=== PATIENT | male | born 1935 | race African-American/Black ===

== ENCOUNTER → 2016-09-28 | Outpatient (CLI) | payer MEDICARE, OTHER ==
[2015-07-19 18:15] VITALS: BP 173/78
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
--- NOTE | 2016-09-28 13:22 | KCIC ---
EXAM: Lumbar spine MRI without contrast. HISTORY: Lumbar radiculopathy. TECHNIQUE: Multiplanar, multisequence magnetic resonance imaging of the lumbar spine was performed without contrast. COMPARISON: Radiographs obtained on the same date. FINDINGS: There is minimal grade 1 anterolisthesis of L4 on L5, measuring 3 mm. There is minimal grade 1 anterolisthesis of and L3 on L4, measuring 2 mm. There is 3 mm retrolisthesis of L5 on S1. There is degenerative endplate remodeling with disc desiccation at L2-S1. There is disc space narrowing at L5-S1. There are a few endplate Schmorl's nodes. The conus terminates at L2. There are redundant nerve roots within the ventral aspect of the central canal at L1 and L2 due to significant central canal stenosis at L2-L3, described in detail below. No suspicious osseous lesion is seen. 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 At L1-L2, there is a minimal disc bulge with suspected bilateral foraminal annular tears. There is mild left and minimal right foraminal stenosis. At L2-L3, there is a left paracentral to lateral recess disc protrusion with 5 mm inferior and 4 mm superior extrusion. There is also a left foraminal to extraforaminal disc protrusion and annular tear and right foraminal extra foraminal disc protrusion. This is superimposed on a diffuse disc bulge and endplate remodeling. There is mild facet arthropathy. There is hypertrophy of the ligamentum flavum. There is mild to moderate right and mild left foraminal stenosis with partial effacement of the exiting L2 nerve roots. There is moderate to severe central canal stenosis. At L3-L4, there there is a broad-based left paracentral disc protrusion and there are foraminal disc protrusions and annular tears superimposed on a diffuse disc bulge and endplate remodeling. There is mild facet arthropathy. There is hypertrophy of the ligamentum flavum. There is moderate to severe right and moderate left foraminal stenosis with effacement of the exiting L3 nerve roots. There is mild central canal stenosis. At L4-L5, there is a right foraminal annular tear and left foraminal to extraforaminal disc protrusion with slight superior extrusion superimposed on a disc bulge and endplate remodeling. There is mild right and moderate left facet arthropathy. There is mild to moderate right and moderate left foraminal stenosis with partial effacement of the exiting L4 nerve roots. There is mild central canal stenosis. At L5-S1, there is a posterior central disc protrusion with 4 mm inferior extrusion and right foraminal to extraforaminal disc protrusion with superior extrusion superimposed on a disc bulge and endplate osteophytosis. There is moderate to severe right and mild to moderate left facet arthropathy. There is severe right and [id number] left foraminal stenosis with effacement of the exiting L5 nerve roots. IMPRESSION: 1. Multilevel degenerative change within the lumbar spine, described in detail above. This results in mild left and minimal right foraminal stenosis at L1-L2, mild to moderate right and mild left foraminal and moderate to severe central canal stenosis L2-L3, moderate to severe right and moderate left foraminal and mild central canal stenosis at L3-L4, [id number] right and moderate left foraminal and mild central canal stenosis L4-L5 and moderate to severe right and moderate left foraminal stenosis at L5-S1. 2. Slight listhesis at multiple levels. Electronically signed by: Mayra Mccoy MD (09/28/2016 1:19 PM) [place] [id number]
== END | disposition home or self-care (01) ==
LOC: KCIC MRI 11:57
PROVIDERS: ATTEND Family Medicine
DX: M47.896 Other spondylosis, lumbar region (principal); M43.16 Spondylolisthesis, lumbar region; M51.16 Intervertebral disc disorders with radiculopathy, lumbar region; M48.06 Spinal stenosis, lumbar region
CPT/HCPCS: 72110; 72148

== ENCOUNTER → 2017-04-08 | Outpatient (CLI) | payer MEDICARE, OTHER ==
[2017-04-08] MEDS: NORMAL SALINE IV (10:24)
[2017-04-08] MEDS: SINCALIDE IV (10:24)
== END | disposition home or self-care (01) ==
LOC: NM 08:06
DX: R10.9 Unspecified abdominal pain (principal); I12.9 Hypertensive chronic kidney disease with stage 1 through stage 4 chronic kidney disease, or unspecified chronic kidney disease; N18.9 Chronic kidney disease, unspecified
CPT/HCPCS: 78226; 96374; 96375; A9537; J2805

== ENCOUNTER → 2020-01-02 | Outpatient (CLI) | payer OTHER ==
[2015-07-19 18:15] VITALS: BP 173/78
[~2020-01-02] MED LIST: ATOR40TA59 PO; CHOL500021 PO; ESOM20CA PO; MECL-75 PO; TRAZ-118 PO
== END ==
LOC: LAB 12:42
PROVIDERS: ATTEND Internal Medicine Gastroenterology
DX: Z01.812 Encounter for preprocedural laboratory examination (principal); Z20.828 Contact with and (suspected) exposure to other viral communicable diseases; R11.0 Nausea
CPT/HCPCS: U0003

== ENCOUNTER → 2020-01-05 | Day surgery (SDC) | payer OTHER, MEDICARE ==
[~2020-01-05] MED LIST changes: +GLYCOPYRROLATE 1 MG/5 ML VIAL. ONE; +IV RINGERS,LACTATED 1000ML 1,000 ML IV ONE; +LIDOCAINE 2% PF 5 ML VIAL. ONE; +PROPOFOL 10 MG/ML (20ML) VIAL. IV ONE
[2020-01-05 10:18] VITALS: BP 135/63
== END ==
LOC: SURG 08:29
PROVIDERS: ATTEND Internal Medicine Gastroenterology
DX: R19.4 Change in bowel habit (principal); K64.1 Second degree hemorrhoids; K57.30 Diverticulosis of large intestine without perforation or abscess without bleeding; K29.50 Unspecified chronic gastritis without bleeding; R11.0 Nausea; E78.00 Pure hypercholesterolemia, unspecified; I10 Essential (primary) hypertension; E11.9 Type 2 diabetes mellitus without complications; M19.90 Unspecified osteoarthritis, unspecified site; Z79.899 Other long term (current) drug therapy; Z79.84 Long term (current) use of oral hypoglycemic drugs; Z85.46 Personal history of malignant neoplasm of prostate; Z88.6 Allergy status to analgesic agent; Z88.8 Allergy status to other drugs, medicaments and biological substances
CPT/HCPCS: 43235; 45378; J2704; J3490

== ENCOUNTER → 2021-06-06 | Day surgery (SDC) | payer OTHER, MEDICARE ==
[~2021-06-06] MED LIST changes: +AMLO-187 PO; -GLYCOPYRROLATE 1 MG/5 ML VIAL. ONE; +HYDROmorphone 2 MG/ML INJ. IVP PRN; +IV NORMAL SALINE 1000ML BAG 1,000 ML IV SCH; -IV RINGERS,LACTATED 1000ML 1,000 ML IV ONE; +IV RINGERS,LACTATED 1000ML 1,000 ML IV SCH; -LIDOCAINE 2% PF 5 ML VIAL. ONE; +MORPHINE SULFATE 2 MG/ML INJ. IVP PRN; +PROCHLORPERAZINE 10 MG/2 ML VIAL. IVP PRN; +fentaNYL PF VIAL 100 MCG/2 ML VIAL IVP PRN
[2021-06-06 09:04] VITALS: BP 182/75
--- NOTE | 2021-06-06 09:49 | PDOC2 ---
CONSULT Date of Consult Date of Consult DATE: 06/06/21 TIME: 09:44 Reason for Consult Reason for Consult: epigastric abd pain History of Present Illness Reason for Visit: 85 yo Male seen with above. He has diffuse pain that lasts for days. Prior imaging studies of GB have been unrevealing. Weight is stable. Linzess helps with his constipation. Prior colonoscpoy was unrevealing. With the continued issues, he requests further evaluation. Past Medical History Cardiovascular: HTN Renal/: Chronic renal insuff Endocrine: Diabetes Past Surgical History Past Surgical History: Other (eye surgery) Family History Family History: Family History Unknown Social History No ALCOHOL: rare Current Medications Current Medications Current Medications Fentanyl Citrate (Fentanyl 2ml Vial) 25 mcg PRN Q5MIN PRN IVP MILD PAIN 1-3; Start 06/06/21 at 06:00; Stop 06/07/21 at 05:59 Fentanyl Citrate (Fentanyl 2ml Vial) 50 mcg PRN Q5MIN PRN IVP MODERATE PAIN 4- 6; Start 06/06/21 at 06:00; Stop 06/07/21 at 05:59 Morphine Sulfate (Morphine Sulfate) 1 mg PRN Q10MIN PRN IVP SEVERE PAIN 7-10; Start 06/06/21 at 06:00; Stop 06/07/21 at 05:59 Ringer's Solution 1,000 ml @ 30 mls/hr Q24H IV ; Start 06/06/21 at 06:00; Stop 06/06/21 at 17:59 Hydromorphone HCl (Dilaudid) 0.5 mg PRN Q10MIN PRN IVP SEVERE PAIN 7-10, 2nd CHOICE; Start 06/06/21 at 06:00; Stop 06/07/21 at 05:59 Prochlorperazine Edisylate (Compazine) 5 mg PACU PRN PRN IVP NAUSEA, MRX1; Start 06/06/21 at 06:00; Stop 06/07/21 at 05:59 Sodium Chloride 1,000 ml @ 100 mls/hr Q10H IV Last administered on 06/06/21at 09:12; Start 06/06/21 at 09:15; Stop 06/07/21 at 09:14 Active Scripts Active Reported Amlodipine Besylate 10 Mg Tablet 10 Mg PO DAILY Meclizine Hcl 25 Mg Tablet 25 Mg PO DAILY Trazodone Hcl 50 Mg Tablet 50 Mg PO HS D3-50 (Cholecalciferol (Vitamin D3)) 50,000 Unit Capsule 50,000 Unit PO WEEKLY Allergies Allergies: Coded Allergies: nalbuphine (Verified Allergy, Intermediate, 01/05/20) oxycodone (Verified Allergy, Intermediate, 01/05/20) venom-honey bee (Verified Allergy, Intermediate, 01/05/20) niacin (Verified Allergy, Unknown, 01/05/20) promethazine (Verified Allergy, Unknown, 01/05/20) sulindac (Verified Allergy, Unknown, 01/05/20) ROS Eyes: Yes Blurry vision Gastrointestinal: Yes Nausea, Yes Vomiting, Yes Abdominal Pain, Yes Diarrhea, Yes Constipation, Yes Melena, Yes Hematochezia, Yes Other Physical Exam General: Alert, Oriented X3, Cooperative Lungs: Clear to auscultation Heart: Normal S1, Normal S2 Abdomen: Normal bowel sounds, Soft, No tenderness Vitals VITALS Vital Signs Date Time Temp Pulse Resp B/P (MAP) Pulse Ox O2 Delivery O2 Flow Rate FiO2 06/06/21 09:04 97.1 60 20 99 97.1 Assessment/Plan Assessment/Plan epigastric abd pain- etiology to be determined. Gastroparesis, malignancy, Kraft's, and/or PUD in differential. Plan EGD to further assessR/B disucssed with patient who is willing to proceed NOREEN CARRERA MD Jun 06, 2021 09:49
[2021-06-06 10:27] VITALS: BP 151/65
== END | disposition home or self-care (01) ==
LOC: ENDOS 08:25
PROVIDERS: ATTEND Internal Medicine Gastroenterology
DX: R10.13 Epigastric pain (principal); K29.50 Unspecified chronic gastritis without bleeding; K31.89 Other diseases of stomach and duodenum; K21.9 Gastro-esophageal reflux disease without esophagitis; I10 Essential (primary) hypertension; E11.9 Type 2 diabetes mellitus without complications; E78.00 Pure hypercholesterolemia, unspecified; M19.90 Unspecified osteoarthritis, unspecified site; Z79.899 Other long term (current) drug therapy; Z98.890 Other specified postprocedural states; Z88.8 Allergy status to other drugs, medicaments and biological substances
CPT/HCPCS: 43235; J2704

== ENCOUNTER → 2021-08-01 | Outpatient (CLI) | payer OTHER, MEDICARE ==
[2021-06-06 10:27] VITALS: BP 151/65
[~2021-08-01] MED LIST changes: -HYDROmorphone 2 MG/ML INJ. IVP PRN; -IV NORMAL SALINE 1000ML BAG 1,000 ML IV SCH; -IV RINGERS,LACTATED 1000ML 1,000 ML IV SCH; -MORPHINE SULFATE 2 MG/ML INJ. IVP PRN; -PROCHLORPERAZINE 10 MG/2 ML VIAL. IVP PRN; -PROPOFOL 10 MG/ML (20ML) VIAL. IV ONE; -fentaNYL PF VIAL 100 MCG/2 ML VIAL IVP PRN
--- NOTE | 2021-08-01 15:40 | RAD ---
US HEPATIC LIVER DOPPLER History: Reason: MESENTERIC ARTERY STENOSIS. / Spl. Instructions: / History: Comparison: CT June 23, 2021 Technique: Duplex sonography of the superior mesenteric artery and the celiac artery and the abdomina l aorta including brody scale and color flow and spectral waveform analysis was performed. Abdominal aorta: 95.4 cm/s Celiac artery: Celiac artery origin is degraded due to overlying bowel gas. Normal velocity 183 cm/s. Superior mesenteric artery: Normal velocity 143 cm/s. Inferior mesenteric artery not well seen due to overlying structures. Patent hepatic artery. Patent portal vein with normal directional flow. Patent IVC. Impression: 1. Degraded evaluation. Inferior mesenteric artery not well seen. 2. No evidence of arterial stenosis or occlusion. Electronically signed by: Raúl Lucero DO (08/01/2021 3:38 PM) [id number]
== END ==
LOC: US 08:36
PROVIDERS: ATTEND Surgery Vascular Surgery
DX: K55.1 Chronic vascular disorders of intestine (principal)
CPT/HCPCS: 93975